=== PATIENT | female | born 1985 | race African-American/Black ===

== ENCOUNTER → 2020-03-28 09:52 | Outpatient (BNVA) | payer OTHER, SELFPAY | PROVIDERS: PCP Internal Medicine; Referring Provider Internal Medicine; Visit Provider Surgery | DX: Z76.89 Persons encountering health services in other specified circumstances (principal) ==

== ENCOUNTER → 2020-04-11 08:36 | Outpatient (BNVA) | payer OTHER, SELFPAY | PROVIDERS: PCP Internal Medicine; Visit Provider Dietitian, Registered | DX: Z76.89 Persons encountering health services in other specified circumstances (principal) ==

== ENCOUNTER → 2020-04-18 12:59 | Outpatient (BNVA) | payer OTHER, SELFPAY | PROVIDERS: PCP Internal Medicine; Visit Provider Physician Assistant | DX: Z76.89 Persons encountering health services in other specified circumstances (principal) ==

== ENCOUNTER → 2020-05-07 08:37 | Outpatient (BNVA) | payer OTHER, SELFPAY | PROVIDERS: Visit Provider Physician Assistant | DX: Z76.89 Persons encountering health services in other specified circumstances (principal) ==

== ENCOUNTER → 2020-05-13 09:18 | Outpatient (BNVA) | payer OTHER, SELFPAY | PROVIDERS: PCP Physician Assistant Medical; Referring Provider Physician Assistant Medical; Visit Provider Dietitian, Registered | DX: Z76.89 Persons encountering health services in other specified circumstances (principal) ==

== ENCOUNTER → 2020-05-19 08:20 | Outpatient (BNVA) | payer OTHER, SELFPAY | PROVIDERS: PCP Physician Assistant Medical; Referring Provider Physician Assistant Medical; Visit Provider Physician Assistant | DX: Z76.89 Persons encountering health services in other specified circumstances (principal) ==

== ENCOUNTER → 2020-05-20 08:18 | Outpatient (BNVA) | payer OTHER, SELFPAY | PROVIDERS: PCP Internal Medicine; Visit Provider Surgery | DX: Z76.89 Persons encountering health services in other specified circumstances (principal) ==

== ENCOUNTER 2020-05-27 09:01 | Outpatient (REF) | payer OTHER, SELFPAY ==
--- NOTE | 2020-05-27 10:29 | XR_ITS ---
EXAMINATION: XR CHEST CLINICAL INFORMATION: Shortness of breath. COMPARISON: Chest 10/12/2018 TECHNIQUE: 2 views of the chest were obtained. FINDINGS: No significant abnormality is noted involving the heart, lungs, mediastinum, bony thorax or soft tissues. XR/XR chest 2V IMPRESSION: Unremarkable chest examination.
--- NOTE | 2020-05-27 10:41 | ECG_ITS ---
Test Reason : CP Blood Pressure : / mmHG Vent. Rate : 058 BPM Atrial Rate : 058 BPM P-R Int : 184 ms QRS Dur : 086 ms QT Int : 408 ms P-R-T Axes : 040 058 005 degrees QTc Int : 400 ms Sinus bradycardia with marked sinus arrhythmia Otherwise normal ECG When compared with ECG of 12-OCT-2018 06:42, QT has shortened Referred By: Delores Briones Electronically Signed By:Thee Joseph
[2020-05-27 11:28] LABS: MANUAL DIFF FLAG NO
[2020-05-27 11:39] LABS: Basophils Percent Auto 0.6 % (0-2); Eosinophils Absolute Auto 0.1 X10*3/uL (0.0-0.4); Hematocrit 40.5 % (37-47); Lymphocytes Absolute Auto 2.5 X10*3/uL (1.2-4.9); Lymphocytes Percent Auto 47.3 % (20-40); Mean Corpuscular HGB Conc 32.1 g/dl (31.0-35.0); Mean Corpuscular Hemoglobin 27.9 pg (27.0-33.0); Mean Corpuscular Volume 86.9 fL (80-98); Mean Platelet Volume 10.1 fL (9.4-12.3); Monocytes Absolute Auto 0.2 X10*3/uL (0.1-1.2); Neutrophils Absolute Auto 2.5 X10*3/uL (2.0-8.3); Neutrophils Percent Auto 47.1 % (45-73); Platelet Count 345 X10*3/uL (160-400); Red Blood Count 4.66 X10*6/uL (4.20-5.50); Red Cell Distribution Width 13.1 % (11.0-16.0); White Blood Count 5.2 X10*3/uL (4.8-10.8)
[2020-05-27 12:22] LABS: Alanine Aminotransferase 34 U/L (0-31); Albumin Level 4.3 g/dL (3.5-5.0); Alkaline Phosphatase 71 U/L (39-117); Anion Gap 12 (12-20); Aspartate Amino Transferase 19 U/L (5-31); Bilirubin Total 0.6 mg/dL (0.0-1.0); Blood Urea Nitrogen 10 mg/dL (9-16); C Reactive Protein 0.32 mg/dL (< or = 0.50); Carbon Dioxide 29 mmol/L (22-29); Chloride 104 mmol/L (96-108); Cholesterol 161 mg/dL; Estimated Glomerular Filt Rate > 60; Glucose Fasting 90 mg/dL (60-99); HDL Cholesterol 31 mg/dL; Iron 81 mcg/dL (30-160); LDL Cholesterol Calculated 114 mg/dl; Percent Iron Saturation 21 % (15-50); Potassium 3.8 mmol/l (3.3-5.1); Sodium 141 mmol/L (135-145); Total Iron Binding Capacity 387 mcg/dL (228-428); Triglycerides 84 mg/dL; Unsaturated Iron Binding 306 ug/dL
[2020-05-27 12:38] LABS: Vitamin B12 567 pg/mL (200-900)
[2020-05-27 12:49] LABS: Vitamin D 25-OH Total 17.8 ng/mL (>30)
[2020-05-29 16:03] LABS: PTHI 97 pg/mL (14-64)
[2020-05-31 15:28] LABS: Zinc 75 mcg/dL (60-130)
[2020-06-01 13:47] LABS: Vitamin B1 <6 nmol/L (8-30)
[2020-06-02 09:42] LABS: Vitamin A 34 mcg/dL (38-98)
== END 2020-05-27 09:02 | disposition home or self-care (01) ==
LOC: HO.LAB 09:01
PROVIDERS: PCP Internal Medicine; Visit Provider Surgery
DX: Z01.818 Encounter for other preprocedural examination (principal); R06.02 Shortness of breath; E66.01 Morbid (severe) obesity due to excess calories; Z68.44 Body mass index [BMI] 60.0-69.9, adult
CPT/HCPCS: 36415; 71046; 80053; 80061; 82306; 82607; 83540; 83970; 84425; 84443; 84590; 84630; 85025; 86140; 93005

== ENCOUNTER → 2020-06-02 08:55 | Outpatient (BNVA) | payer OTHER, SELFPAY | PROVIDERS: PCP Internal Medicine; Visit Provider Surgery | DX: Z76.89 Persons encountering health services in other specified circumstances (principal) ==

== ENCOUNTER → 2020-06-04 08:17 | Outpatient (BNVA) | payer OTHER, SELFPAY | PROVIDERS: PCP Internal Medicine; Visit Provider Internal Medicine | DX: Z76.89 Persons encountering health services in other specified circumstances (principal) ==

== ENCOUNTER → 2020-06-19 14:01 | Outpatient (BNVA) | payer OTHER, SELFPAY | PROVIDERS: PCP Internal Medicine; Visit Provider Surgery | DX: Z76.89 Persons encountering health services in other specified circumstances (principal) ==

== ENCOUNTER → 2020-06-24 07:40 | Outpatient (REF) | payer OTHER, SELFPAY ==
--- NOTE | 2020-06-24 07:43 | CA_ITS ---
Transthoracic Echocardiogram Patient (Last, First, Middle): Bonnie Bass, Gender: Female Date of : 1985 Age: 34 Procedure Date: 06/24/2020 Procedure Type: Transthoracic Echocardiogram Location: OP Height: 170.18 cm Weight: 171.01 kg BSA: 2.65 m2 Heart Rate: bpm BP: 127 / 78 mmHg Hatch Tender: Referring MD: Donavan Oliveira MD Hand Ii Blocker: Felice Lai MD Symptoms: R06.02 - Shortness of breath Study Quality: Fair ECG Rhythm: Sinus Conclusions: - Essentially normal study Findings Left Ventricle Normal left ventricular size, thickness, and systolic function. The visually estimated ejection fraction is between 60-65%. Diastolic function is normal for age. Right Ventricle Normal right ventricular cavity size and systolic function. Atria Both atria are normal in size. There is no evidence of interatrial shunt. Aortic Valve The aortic valve structure and function is likely normal. There is no aortic valve stenosis. There is no aortic valve regurgitation. Mitral Valve Normal mitral valve structure and function. There is trace mitral valve regurgitation. There is no mitral valve stenosis. Pulmonic Valve The pulmonic valve was not well visualized. Tricuspid Valve Likely normal tricuspid valve structure and function. There is trace tricuspid valve regurgitation. The right ventricular systolic pressure is normal. The right ventricular systolic pressure is 26 mmHg. Normal right atrial pressure. There is no evidence of pulmonary hypertension. Great Vessels All visible segments of the aorta are normal in size. Venous The inferior vena cava is normal in size and collapses greater than 50% with inspiration. Pericardium/Pleural There is no evidence of pericardial effusion. Prior Study Comparison No prior study available for comparison. Measurements 2D Linear Measurements IVSd: 0.85 0.6-0.9/0.6-1.0 cm LVIDd: 4.00 3.9-5.3/4.2-5.9 cm LVIDd Index: 1.51 2.4-3.2/2.2-3.1 cm/m2 LVIDs: 2.33 2.0-3.6 cm LVPWd: 0.80 0.7-1.1 cm Ao Root: 2.90 2.1-3.5 cm LA Diam: 3.10 2.7-3.8/3.0-4.0 cm LAIDs Index: 1.17 1.5-2.3 cm/m2 LV Mass: 220.37 67-162/88-224 g LV Mass Index: 83.16 43-95/49-115 g/m2 LVOT Diam: 2.10 3.0+(-)1.3 cm Mitral Valve MV Pk E: 1.03 MV PK A: 0.54 MV Decel Time: 227.00 E/A: 1.90 E'Lateral: 10.80 E'Medial: 13.00 E/E' Med: 7.90 E/E' Lat: 9.50 PHT: 66.00 MVA PHT: 3.33 Decel [place]: 4.53 Aortic Valve AoV Pk Raffy: 1.32 AoV Mn Raffy: 0.90 AoV VTI: 0.32 AoV Pk Grad: 7.00 Aov Mn Grad: 4.00 TANIA Cont.VTI: 2.17 LVOT LVOT Pk Raffy: 0.77 LVOT Mn Raffy: 0.56 LVOT VTI: 0.20 LVOT Pk Grad: 2.00 LVOT Mn Grad: 1.00 LVOT Diam: 2.10 LVOT Area: 3.46 Diastolic Function MV Pk E: 1.03 MV Pk A: 0.54 E/A: 1.90 E'Medial: 13.00 E/E' Med: 7.90 E' Laterial: 10.80 E/E' Lat: 9.50 Tricuspid Valve TR Pk Raffy: 2.41 TR Pk Grad: 23.00 RA Press: 3.00 RVSP: 26.00 Great Vessels Aorta Ao Root-2D: 2.90 2.0-3.7 cm Ao Asc: 2.30 2.1-3.4 cm Pulmonary Valve PV Pk Raffy: 1.02 Peak PV Grad: 4.00 Updated in Other Vendor System with Status of Final Felice Lai MD electronically signed on 06/25/2020 2:59:52 PM with status of Final
== END ==
LOC: HO.CARD 07:40
PROVIDERS: Visit Provider Internal Medicine
DX: R06.02 Shortness of breath (principal)
CPT/HCPCS: 93306

== ENCOUNTER → 2020-06-27 14:01 | Outpatient (BNVA) | payer OTHER, SELFPAY | PROVIDERS: PCP Internal Medicine; Visit Provider Physician Assistant | DX: Z76.89 Persons encountering health services in other specified circumstances (principal) ==

== ENCOUNTER → 2020-06-30 13:17 | Outpatient (BNVA) | payer OTHER, SELFPAY | PROVIDERS: PCP Internal Medicine; Visit Provider Surgery ==

== ENCOUNTER 2020-07-09 05:48 | Inpatient (IN) | payer OTHER, SELFPAY ==
--- NOTE | 2020-07-01 08:16 | ECG_ITS ---
Test Reason : CP Blood Pressure : / mmHG Vent. Rate : 075 BPM Atrial Rate : 075 BPM P-R Int : 176 ms QRS Dur : 084 ms QT Int : 398 ms P-R-T Axes : 044 053 007 degrees QTc Int : 444 ms Normal sinus rhythm Normal ECG When compared with ECG of 27-MAY-2020 10:51, No significant change was found Referred By: Delores Briones Electronically Signed By:FREDDY KRAUSE
[2020-07-01 08:49] LABS: MANUAL DIFF FLAG NO
[2020-07-01 08:53] LABS: Basophils Percent Auto 0.6 % (0-2); Eosinophils Absolute Auto 0.2 X10*3/uL (0.0-0.4); Eosinophils Percent Auto 2.5 % (0-4); Hematocrit 37.7 % (37-47); Hemoglobin 12.2 g/dl (12.0-16.0); Imm Gran Abs Auto 0.01 X10*3/uL (0.00-0.03); Imm Gran Pct Auto 0.1 % (0.0-0.4); Lymphocytes Absolute Auto 3.1 X10*3/uL (1.2-4.9); Lymphocytes Percent Auto 42.6 % (20-40); Mean Corpuscular HGB Conc 32.4 g/dl (31.0-35.0); Mean Corpuscular Hemoglobin 27.5 pg (27.0-33.0); Mean Corpuscular Volume 85.1 fL (80-98); Mean Platelet Volume 9.6 fL (9.4-12.3); Monocytes Absolute Auto 0.4 X10*3/uL (0.1-1.2); Monocytes Percent Auto 6.1 % (2-11); Neutrophils Absolute Auto 3.5 X10*3/uL (2.0-8.3); Neutrophils Percent Auto 48.1 % (45-73); Platelet Count 352 X10*3/uL (160-400); Red Blood Count 4.43 X10*6/uL (4.20-5.50); Red Cell Distribution Width 13.2 % (11.0-16.0); White Blood Count 7.3 X10*3/uL (4.8-10.8)
[2020-07-01 09:19] LABS: Albumin Level 4.2 g/dL (3.5-5.0); Anion Gap 13 (12-20); Blood Urea Nitrogen 10 mg/dL (9-16); Calcium 8.8 mg/dL (8.4-10.2); Carbon Dioxide 27 mmol/L (22-29); Chloride 105 mmol/L (96-108); Estimated Glomerular Filt Rate > 60; Glucose Random 107 mg/dL (60-115); Potassium 3.7 mmol/l (3.3-5.1); Sodium 141 mmol/L (135-145)
[2020-07-01 09:40] LABS: Vitamin D 25-OH Total 21.7 ng/mL (>30)
[2020-07-02 10:31] VITALS: BMI 59.2
--- NOTE | 2020-07-03 15:16 | P.CONAN_ITS ---
Documented by User: Amena Torrez 07/08/20 10:37 HPI - Anesthesia Eval Consult details Narrative: 34yo F for Gastrectomy Sleeve Cardiac cleared at low risk. [facility]LY [facility] Past Medical History Medical History (Updated 07/02/20 @ 10:34 by Latanya Dumont) ADD (attention deficit disorder) Anxiety Asthma Depression GERD (gastroesophageal reflux disease) Intrauterine contraceptive device Morbid obesity with BMI of 60.0-69.9, adult Sleep apnea Family History Family History Father HTN (hypertension) Mother HTN (hypertension) Brother No problems noted. Sister No problems noted. Surgical History Surgical History H/O lymph node excision H/O wisdom tooth extraction Social History Social History (Updated 07/02/20 @ 10:37 by Latanya Dumont) Are you a primary animal caretaker to a significant other at home: No Do you presently have visiting nurse or other home services: No Alcohol intake: current Alcohol intake frequency: a few times a month Smoking Status: Never smoker Use of substances other than those prescribed or required for medical reasons: No Have you been hit, kicked, punched, or otherwise hurt by someone within the past year? If so, by whom?: No Advance Directives Information Provided: No Recently lost weight without trying: No Meds Allergies Allergy/AdvReac Type Severity Reaction Status Date / Time No Known Allergies Allergy Verified 06/30/20 14:37 Home Medications Medication Instructions Recorded Confirmed Type albuterol sulfate [ProAir HFA] 2 puff INHALATION Q4-6H PRN 07/03/20 07/03/20 History Exam Exam Date and Time: July 03, 2020 1516 Height,Weight and Vital Signs: Height 5 ft 7 in Weight 171.458 kg Pertinent Lab Results Pertinent Lab Results: Laboratory Tests 07/01/20 07/01/20 07/01/20 08:05 08:05 08:05 WBC 7.3 RBC 4.43 Hgb 12.2 Hct 37.7 MCV 85.1 MCH 27.5 MCHC 32.4 RDW 13.2 Plt Count 352 MPV 9.6 Immature Gran % (Auto) 0.1 Neut % (Auto) 48.1 Lymph % (Auto) 42.6 H [place] % (Auto) 6.1 Eos % (Auto) 2.5 Baso % (Auto) 0.6 Lymph # (Auto) 3.1 [place] # (Auto) 0.4 Eos # (Auto) 0.2 Baso # (Auto) 0.0 Abs Immat Gran (auto) 0.01 Absolute Neuts (auto) 3.5 Absolute Nucleated RBC 0.000 Nucleated RBC % (auto) 0.0 Sodium 141 Potassium 3.7 Chloride 105 Carbon Dioxide 27 Anion Gap 13 BUN 10 Creatinine 0.69 Estim Creat Clear Calc TNP Estimated GFR > 60 Random Glucose 107 Calcium 8.8 Albumin 4.2 25-OH Vitamin D Total 21.7 Blood Type B Positive Antibody Screen NEGATIVE Narrative Narrative: EKG 06/2020 Normal sinus rhythm Normal ECG When compared with ECG of 27-MAY-2020 10:51, No significant change was found Echo 06/2020 Conclusions: - Essentially normal study Assessment and Plan Assessment Anesthesia Assessment: Chart Reviewed Documented by User: Karen Zelaya 07/09/20 11:14 [facility] Past Medical History Medical History (Updated 07/02/20 @ 10:34 by Latanya Dumont) ADD (attention deficit disorder) Anxiety Asthma Depression GERD (gastroesophageal reflux disease) Intrauterine contraceptive device Morbid obesity with BMI of 60.0-69.9, adult Sleep apnea Family History Family History Father HTN (hypertension) Mother HTN (hypertension) Brother No problems noted. Sister No problems noted. Family history of problems with anesthesia: No Surgical History Surgical History H/O lymph node excision H/O wisdom tooth extraction History of Problems with Anesthesia: No Social History Social History (Updated 07/02/20 @ 10:37 by Latanya Dumont) Are you a primary animal caretaker to a significant other at home: No Do you presently have visiting nurse or other home services: No Alcohol intake: current Alcohol intake frequency: a few times a month Smoking Status: Never smoker Use of substances other than those prescribed or required for medical reasons: No Have you been hit, kicked, punched, or otherwise hurt by someone within the past year? If so, by whom?: No Advance Directives Information Provided: No Recently lost weight without trying: No Meds Allergies Allergy/AdvReac Type Severity Reaction Status Date / Time No Known Allergies Allergy Verified 06/30/20 14:37 Home Medications Medication Instructions Recorded Confirmed Type albuterol sulfate [ProAir HFA] 2 puff INHALATION Q4-6H PRN 07/03/20 07/03/20 History Exam Height,Weight and Vital Signs: Vital Signs Temp Pulse Resp BP Pulse Ox 07/09/20 07:27 97 F 76 18 138/67 98 Pertinent Lab Results Pertinent Lab Results: Lab Results 07/01/20 07/01/20 07/01/20 Range/Units 08:05 08:05 08:05 WBC 7.3 (4.8-10.8) X10*3/uL RBC 4.43 (4.20-5.50) X10*6/uL Hgb 12.2 (12.0-16.0) g/dl Hct 37.7 (37-47) % MCV 85.1 (80-98) fL MCH 27.5 (27.0-33.0) pg MCHC 32.4 (31.0-35.0) g/dl RDW 13.2 (11.0-16.0) % Plt Count 352 (160-400) X10*3/uL MPV 9.6 (9.4-12.3) fL Immature Gran % (Auto) 0.1 (0.0-0.4) % Neut % (Auto) 48.1 (45-73) % Lymph % (Auto) 42.6 H (20-40) % [place] % (Auto) 6.1 (2-11) % Eos % (Auto) 2.5 (0-4) % Baso % (Auto) 0.6 (0-2) % Lymph # (Auto) 3.1 (1.2-4.9) X10*3/uL [place] # (Auto) 0.4 (0.1-1.2) X10*3/uL Eos # (Auto) 0.2 (0.0-0.4) X10*3/uL Baso # (Auto) 0.0 (0.0-0.2) X10*3/uL Abs Immat Gran (auto) 0.01 (0.00-0.03) X10*3/uL Absolute Neuts (auto) 3.5 (2.0-8.3) X10*3/uL Absolute Nucleated RBC 0.000 (0.0-0.012) X10*3/uL Nucleated RBC % (auto) 0.0 (0.0-0.2) /100WBC Sodium 141 (135-145) mmol/L Potassium 3.7 (3.3-5.1) mmol/l Chloride 105 (96-108) mmol/L Carbon Dioxide 27 (22-29) mmol/L Anion Gap 13 (12-20) BUN 10 (9-16) mg/dL Creatinine 0.69 (0.5-1.4) mg/dL Estim Creat Clear Calc TNP Estimated GFR > 60 Random Glucose 107 (60-115) mg/dL Calcium 8.8 (8.4-10.2) mg/dL Albumin 4.2 (3.5-5.0) g/dL Vitamin A 54 (38-98) mcg/dL Vitamin B1 11 (8-30) nmol/L 25-OH Vitamin D Total 21.7 (>30) ng/mL Urine Test (NEGATIVE) COVID-19 (ROSALIND) (Negative) COVID-19 Clin [facility] Blood Type Antibody Screen 07/01/20 07/09/20 07/09/20 Range/Units 08:05 07:10 07:10 WBC (4.8-10.8) X10*3/uL RBC (4.20-5.50) X10*6/uL Hgb (12.0-16.0) g/dl Hct (37-47) % MCV (80-98) fL MCH (27.0-33.0) pg MCHC (31.0-35.0) g/dl RDW (11.0-16.0) % Plt Count (160-400) X10*3/uL MPV (9.4-12.3) fL Immature Gran % (Auto) (0.0-0.4) % Neut % (Auto) (45-73) % Lymph % (Auto) (20-40) % [place] % (Auto) (2-11) % Eos % (Auto) (0-4) % Baso % (Auto) (0-2) % Lymph # (Auto) (1.2-4.9) X10*3/uL [place] # (Auto) (0.1-1.2) X10*3/uL Eos # (Auto) (0.0-0.4) X10*3/uL Baso # (Auto) (0.0-0.2) X10*3/uL Abs Immat Gran (auto) (0.00-0.03) X10*3/uL Absolute Neuts (auto) (2.0-8.3) X10*3/uL Absolute Nucleated RBC (0.0-0.012) X10*3/uL Nucleated RBC % (auto) (0.0-0.2) /100WBC Sodium (135-145) mmol/L Potassium (3.3-5.1) mmol/l Chloride (96-108) mmol/L Carbon Dioxide (22-29) mmol/L Anion Gap (12-20) BUN (9-16) mg/dL Creatinine (0.5-1.4) mg/dL Estim Creat Clear Calc Estimated GFR Random Glucose (60-115) mg/dL Calcium (8.4-10.2) mg/dL Albumin (3.5-5.0) g/dL Vitamin A (38-98) mcg/dL Vitamin B1 (8-30) nmol/L 25-OH Vitamin D Total (>30) ng/mL Urine Test NEGATIVE (NEGATIVE) COVID-19 (ROSALIND) Negative (Negative) COVID-19 Clin Com See Note Blood Type B Positive Antibody Screen NEGATIVE Airway Mallampati Class: III TM Dist: >3cm Neck ROM: Full Loose/Missing/Broken Teeth: Yes (Some missing) Heart: RRR Lungs: CTAB Assessment and Plan Assessment Anesthesia Assessment: Anesthesia Plan Discussed and Chart Reviewed Final Anesthetic Review NPO: Yes ASA Class: III Final Preanesthetic Review: No Changes in Pt Med Stat, Meds/Allgs Chart Reviewed, Consent Obtained/Reviewed and Anes Risks/Benef Reviewed Patient Risk: Intermediate Procedure Risk: Intermediate Assessment/Block/Sedation in SS: Assess/Block/Sedation-SS Anesthetic Plan Anesthetic Plan: GA Disposition: Extended PACU
[2020-07-05 04:03] LABS: Vitamin A 54 mcg/dL (38-98)
[2020-07-05 12:13] LABS: Vitamin B1 11 nmol/L (8-30)
--- NOTE | 2020-07-08 15:18 | MHC.SHP ---
Pre-Procedural Eval Section B Chief Complaint: obesity Allergies: Allergies Allergy/AdvReac Type Severity Reaction Status Date / Time No Known Allergies Allergy Verified 06/30/20 14:37 Plan I have reviewed the history and physical and performed a pertinent physical examination on my patient. No changes have occurred unless specified.
[2020-07-09] VITALS (19 sets, daily range): BP systolic 138–198; BP diastolic 67–104; PULSE 76–100; RESP 14–19; TEMP 36.1–37.3; O2SAT 94–100
[2020-07-09 07:24] LABS: UPreg QC Valid YES; Urine Pregnancy NEGATIVE (NEGATIVE)
[2020-07-09 07:33] LABS: IDNOW Serial# 9DD0AD1C
[2020-07-09 07:34] LABS: COVID-19 Test Negative (Negative)
[2020-07-09] MEDS: Lactated Ringers 1,000 ML 100 ML IVCONT ×2 (07:35→23:42)
--- NOTE | 2020-07-09 09:11 | PM.OP ---
Brief Operative Note Date of Service: 07/09/20 Pre-op diagnosis: Morbid obesity, BMI 59.2, sleep apnea Post-op diagnosis: other (Same and hiatal hernia) Procedure: Laparoscopic sleeve gastrectomy, hiatal hernia repair, Deanna block, and intraoperative endoscopy Implants: covidien el and clips at the staple line on sleeve Surgeon: Delores Briones MD Anesthesia: GETA Personal Development Coach: Rika Machado Estimated blood loss (mL): 30 Pathology: other (Partial gastrectomy) Condition: stable Disposition: PACU
--- NOTE | 2020-07-09 09:12 | P.OP_ITS ---
Operative Note Operative Note Date of Service: 07/09/20 Narrative: Patient was brought into the operating room and placed on the operating room table in the supine position. General anesthesia was induced. Normal DVT prophylaxis was instituted and the patient received 2 grams of cefotetan preoperatively. The abdomen was then prepped and draped in the normal sterile fashion. A safety time-out was performed. A mixture of 1% lidocaine with epinephrine and ??% Marcaine plain was used to a nesthetize the planned incision site in the left upper quadrant. A #11 scalpel was used to make a 5 mm left upper quadrant transverse incision through which a veress needle was placed. Three pops were heard going through the fascia. A saline drop test was used to confirm that the veress needle was intraabdominal. An optiview technique was then used to place a 5mm port in the left upper quadrant. A 5 mm 30 degree laproscope was then placed through this port and the abdominal cavity was surveyed and was normal. The patient was placed in reverse Trendelenburg positioning. A saroj liver retractor was then placed in the subxyphoid position and it was used to hold up the left lobe of the liver to the abdominal wall. This was secured to the bed using the liver retractor walters. A GEREMIAS block was then performed for pain control on the right side of the abdomen. A 5 mm port was placed in the right upper quadrant near the falciform ligament. A 12 mm port was then placed in the mid epigastrium. One additional 5 mm port was placed in the left upper quadrant just to the left of the placement of the first port. I then performed a GEREMIAS block on the left side of the abdomen. I then removed the epigastric fat pad; there was a small anterior hiatal hernia noted. I reapproximated the left and right crura with a total of 2 stitches of 2-0 ethibond and a laparoscopic knot pusher. There was no residual hiatal hernia. I then opened up the angle of His. We then gained entry into the lesser sac about 4-5 cm from the pylorus. I had anesthesia place a 34 [place] orogastric tube into the distal antrum to use as a sizing tool for gastric pouch size. I divided the short gastric vessels up to the angle of His. We then started the creation of the gastric pouch by firing a 60 mm purple load endostapler up the stomach about 4-5 cm from the pylorus. We completed the creation of the gastric pouch using a total of 4 firings of a 60 mm purple and 1 firing of a 45 mm load stapler. We had anesthesia remove the orogastric tube, then we clamped across the distal antrum using a fired 60 mm endostapler. We flattened the patient and then instilled normal saline surrounding the newly created staple line. I then performed an on-table endoscopy. I passed the gastroscopy into the posterior oropharynx and down the esophagus evaluating the esophageal mucosa which was normal. There was no evidence of hiatal hernia. I passed the gastroscope into the gastric pouch and insufflated the gastric pouch. There was healthy pink mucosa and no evidence of active bleeding. There was no evidence of leak on laparosc opy. I desufflated the gastric pouch and removed the endoscope. I removed the endostapler from the abdomen and suctioned the fluid from the left upper quadrant. We evaluated staple line once again and there was some oozing from the staple line. We placed a large clips all along the staple line from the pre-pyloric region to the GE junction. There was no residual bleeding from the staple line. I then removed the partial gastrectomy specimen through the epigastric 12 mm port site. I reapproximated the 12 mm port using a 0 maxon suture with a laparoscopic suture passer. I instilled local anesthetic into the fascial closure site and tied the suture down at a pressure of 8-10 mm of Hg. There was no residual fascial defect. We removed the liver retractor and the left upper quadrant 5 mm ports under direct visualization. There was no evidence of any active bleeding. I desufflated the abdomen through the last remaining port and removed the laparoscope and 5 mm port. We reapproximated all incisions with a 4-0 monocryl subcuticular stitch. We cleaned and dried the abdominal skin and applied dermabond skin glue. All count were correct at the end of the case. The patient was awake and in stable condition prior to extubation and transfer to the recovery room.
[2020-07-09] MEDS: ondansetron HCL 4 MG/2 ML VIAL IVPUSH (12:00)
--- NOTE | 2020-07-09 12:07 | PM.DS ---
DS: Providers Provider Date of Service: 07/10/20 Date of admission: 07/09/20 05:48 Primary care physician: Shima Stapleton MD DS: Medications Discharge Medications Home Medications: Home Medications Medication Instructions Recorded Confirmed albuterol sulfate [ProAir HFA] 2 puff INHALATION Q4-6H PRN 07/03/20 07/03/20 Previous Rx's Medication Instructions Recorded thiamine HCl (vitamin B1) 100 mg 100 mg PO DAILY #30 tab 06/02/20 tablet vitamin A palmitate 10,000 unit 20,000 unit PO DAILY 30 Days #60 06/02/20 tablet tab acetaminophen 500 mg tablet 1,000 mg PO Q6H PRN #30 tab 06/30/20 docusate sodium 100 mg capsule 100 mg PO BID #30 cap 06/30/20 famotidine 20 mg tablet 20 mg PO DAILY #30 tab 06/30/20 ondansetron HCl 4 mg tablet 4 mg PO Q6H PRN #30 tab 06/30/20 simethicone 80 mg chewable tablet 80 mg PO TID-QID PRN #30 tab 06/30/20 DS: Summary Time Spent with Patient Time attestation: Total time spent providing and/or coordinating discharge services: Discharge coordination time: Greater than 30 minutes Physical Exam Vital Signs: Vital Signs: Last Vital Signs Temp 97 F 07/09/20 07:27 Pulse 76 07/09/20 07:27 Resp 18 07/09/20 07:27 BP 138/67 07/09/20 07:27 Pulse Ox 98 07/09/20 07:27 Body Mass Index 59.2 DS: Data Data Completed and Pending Pending studies at discharge: Pending at discharge 07/09/20 10:13 Surgical [PTH] Routine Labs on day of discharge: Laboratory Tests 07/01/20 07/01/20 07/01/20 08:05 08:05 08:05 WBC 7.3 RBC 4.43 Hgb 12.2 Hct 37.7 MCV 85.1 MCH 27.5 MCHC 32.4 RDW 13.2 Plt Count 352 MPV 9.6 Immature Gran % (Auto) 0.1 Neut % (Auto) 48.1 Lymph % (Auto) 42.6 H [place] % (Auto) 6.1 Eos % (Auto) 2.5 Baso % (Auto) 0.6 Lymph # (Auto) 3.1 [place] # (Auto) 0.4 Eos # (Auto) 0.2 Baso # (Auto) 0.0 Abs Immat Gran (auto) 0.01 Absolute Neuts (auto) 3.5 Absolute Nucleated RBC 0.000 Nucleated RBC % (auto) 0.0 Sodium 141 Potassium 3.7 Chloride 105 Carbon Dioxide 27 Anion Gap 13 BUN 10 Creatinine 0.69 Estim Creat Clear Calc TNP Estimated GFR > 60 Random Glucose 107 Calcium 8.8 Albumin 4.2 Vitamin A 54 Vitamin B1 11 25-OH Vitamin D Total 21.7 Urine Test COVID-19 (ROSALIND) COVID-19 [facility] [place] [facility] Blood Type Antibody Screen 07/01/20 07/09/20 07/09/20 08:05 07:10 07:10 WBC RBC Hgb Hct MCV MCH MCHC RDW Plt Count MPV Immature Gran % (Auto) Neut % (Auto) Lymph % (Auto) [place] % (Auto) Eos % (Auto) Baso % (Auto) Lymph # (Auto) [place] # (Auto) Eos # (Auto) Baso # (Auto) Abs Immat Gran (auto) Absolute Neuts (auto) Absolute Nucleated RBC Nucleated RBC % (auto) Sodium Potassium Chloride Carbon Dioxide Anion Gap BUN Creatinine Estim Creat Clear Calc Estimated GFR Random Glucose Calcium Albumin Vitamin A Vitamin B1 25-OH Vitamin D Total Urine Test NEGATIVE COVID-19 (ROSALIND) Negative COVID-19 [facility] [place] See Note Blood Type B Positive Antibody Screen NEGATIVE Discharge Plan Discharge Patient Disposition: Home, Self-Care Referrals: Shima Stapleton MD [Primary Care Provider] - Discharge Medications: Continued thiamine HCl (vitamin B1) 100 mg tablet 100 mg PO DAILY Qty: 30 RF: 0 vitamin A palmitate 10,000 unit tablet 20,000 unit PO DAILY 30 Days Qty: 60 RF: 0 albuterol sulfate [ProAir HFA] 90 mcg/actuation Hfa Aerosol Inhaler 2 puff INHALATION Q4-6H PRN (Reason: Shortness Of Breath) RF: 0 acetaminophen [Tylenol Extra Strength] 500 mg tablet 1,000 mg PO Q6H PRN (Reason: pain) Qty: 30 RF: 1 famotidine [Pepcid AC] 20 mg tablet 20 mg PO DAILY Qty: 30 RF: 1 simethicone [Gas Relief (simethicone)] 80 mg tablet,chewable 80 mg PO TID-QID PRN (Reason: abdominal distention) Qty: 30 RF: 1 ondansetron HCl [Zofran] 4 mg tablet 4 mg PO Q6H PRN (Reason: nausea and vomiting) Qty: 30 RF: 1 docusate sodium [Colace] 100 mg capsule 100 mg PO BID Qty: 30 RF: 1 Discharge Orders: Discharge Order (Routine); Ordered 07/10/20 Ordered By: Delores Briones Diet: other Activity on Discharge: No heavy lifting Stand Alone Forms: Patient Portal Discharge page Activity Restrictions/Additional Instructions: Discharge Instructions 1. Please call your doctor or come back to the emergency room should any new symptoms arise. 2. You will receive a courtesy call from [facility] 24-48 hours after discharge. 3. Activity: abstain from alcohol, practice limited stair climbing, no bending, no driving, no exercise, no illicit substances, no lifting, no sex, no tub bath, no work. 4. Diet: continue stage 3 protein shakes until your [address] Briones. 5. Dressing Change/Wound Care: Your incision is covered by surgical glue. If the area is tender, you may apply an ice pack for short intervals (no more than 20 minutes on, followed by at least 20 minutes off). Do not apply heat. Do not use creams, lotions, or topical antibiotics unless instructed to do so by your surgeon. These can cause infection or allergic reaction. 6. Call your doctor if: - Your temperature exceeds 101.5 F - You experience excessive pain or swelling - You have an unexpected reaction to medication - You have excessive bleeding - You experience continued vomiting/nausea - Your incision begins to separate - Your incision shows signs of infection such as increased redness, swelling, excessive pain, heat, or drainage (light blood or clear fluid is normal) 7. General instructions: - No lifting greater than 5 lbs for the next 4 weeks. - No driving within 24 hours of taking narcotic pain medications. - If you do not move your bowels in the next 2 days, please take milk of magnesia over the counter. Please follow the post op diet and do not advance your diet until you are seen in the office in about 2 weeks. - Please walk around your home every hour or two to prevent blood clots from forming in your legs. You do not need to wake from sleeping to walk. - Please sleep in a bed or couch to prevent kinking at the hips and knees. - Please take your incentive spirometer (your lung health sciences department chair) home with you and use it for the next few days to prevent pneumonias. - You may shower, no hot tubs, baths or swimming pools. - Please call the office with any questions or concerns such as increasing abdominal pain, fever, chills, shortness of breath, chest pain, leg pain or swelling, or redness or drainage from your incisions. - Please stay on stage 3 diet which includes sugar free clear liquids such as ice pops and jello and broth and crystal light. Avoid all carbonation. Please drink 3 protein shakes with at least 25-30 grams of protein daily or 3 of the Celebrate 4:1 shakes which can be purchased in our office. The Celebrate shakes have all of the bariatric vitamins you need if you consume these shakes. If you are drinking other protein shakes, you will need to purchase the Celebrate multivitamins and calcium that we provide in the office (they will provide all the vitamins you need). Please make sure you are consuming at least 40-60 ounces of water in addition to your 3 protein shakes daily. 8. Do not hesitate to contact the office with any questions at . Discharge Summary Date of Service: 07/10/20 Admitting Diagnosis: morbid obesity Discharge Diagnosis: same, and hiatal hernia Procedure Performed: LSG, hiatal hernia repair, aster block, intraoperative endoscopy Discharge Medications: 1. Simethicone 80mg tablet chewable (Si tablet every 6 hours orally for 7 days, #28, 1 RF) q4h prn gas 2. Acetaminophen 500 mg tablet (Si tablets as needed every 6 hours orally for 30 days, #240, 0 RF) 3. Ondansetron 4 mg tablet disintegrating (Si tablet every 6 hours orally for 7 days, #28, 1 RF) 4. Colace 100 mg capsule (Si capsule twice a day for 30 days, #60, 2 RF) 5. Pepcid 20 mg chewable tablet (Si tablet twice a day for 30 days, #60, 3 RF) Discharge Instructions: The patient should continue on the stage III bariatric diet, which includes 3 protein shakes of at least 20-30g of protein on a daily basis. The patient was encouraged to avoid drinking liquids with her protein shakes. They should wait 30-45 minutes in between her meals and drinking water. She should drink at least 40-60 ounces of water on a daily basis. They should ambulate while at home to avoid any blood clots in her lower extremities. They should call with any questions or concerns such as increase in abdominal pain, persistent nausea, vomiting, redness and drainage from her incisions, fever, chills, shortness of breast, or chest pain beyond what is normal for her. The patient should avoid all heavy lifting greater than 5 pounds for the next 4 weeks. The patient is already scheduled to follow up with me in 2 weeks time, but should call the office with any questions prior to that follow up appointment. The patient should not advance their diet until they are seen in the office for the 2 week appointment. Hospital Course: The patient was admitted after undergoing laparoscopic sleeve gastrectomy and repair of hiatal hernia. They were started on stage II (1 oz of fluid every 15 minutes) on POD #0. The next morning they were evaluated and started on stage III diet (protein shakes). All labs were within normal limits. On post-operative day #1 she was feeling better, nausea and epigastric pain improved and they were tolerating stage III bariatric diet well. The patient was discharged home. Discharge Disposition: Home. Visit Report Forms: Patient Portal Discharge page Care Plan Goals: weight loss Health Concerns: obesity Plan of Treatment: weight loss surgery Discharge Date/Time: 07/10/20 13:26
--- NOTE | 2020-07-09 12:07 | P.PNGS_ITS ---
Subjective Subjective Date of Service: 07/10/20 <Rika Machado PA-C - Last Filed: 07/10/20 15:07> 07/10/20 <Delores Briones MD - Last Filed: 07/10/20 15:08> Interval history: POD #1: Patient is doing well. Has been ambulating, using the incentive spirometer, and tolerating po liquids. No nausea or abdominal pain. Has some mild incisional pain. <Rika Machado PA-C - Last Filed: 07/10/20 15:07> Patient seen and examined with JUDY Machado. Patient Pod #1 s/p lap sleeve gastrectomy and hiatal hernia repair. Doing well. Tolerating stage 3 diet, ambulating in hallway. Pain well controlled. Denies nausea or vomiting. She does complain of some gas discomfort that radiates to the left shoulder. She had some issues with hypertension overnight which now much improved. Vitals and labs reviewed and are within limit for post op day 1. On exam, patient is well appearing, abdomen is soft, nd, mild appropriate incisional tenderness. Incisions c/d/I with dermabond in place. Plan: d/c home today. Follow up with me in [address] Briones <Delores Briones MD - Last Filed: 07/10/20 15:08> Physical Exam Vital Signs: Vital Signs: Last Vital Signs Temp 97 F 07/09/20 07:27 Pulse 76 07/09/20 07:27 Resp 18 07/09/20 07:27 BP 138/67 07/09/20 07:27 Pulse Ox 98 07/09/20 07:27 Body Mass Index 59.2 <Rika Machado PA-C - Last Filed: 07/10/20 15:07> Const: General: cooperative, comfortable, no acute distress, alert and awake <Rika Machado PA-C - Last Filed: 07/10/20 15:07> Nutritional Appearance: obese <Rika Machado PA-C - Last Filed: 07/10/20 15:07> GI: Inspection: Yes normal to inspection, Yes incision (normal, slight erythema at site of surgical glue, no tenderness/warmth/drai) and Yes obesity <Rika Machado PA-C - Last Filed: 07/10/20 15:07> Extrem: Right lower extremity: lower leg Details: no tenderness; no edema <PEDRO PABLO Patel Last Filed: 07/10/20 15:07> Left lower extremity: lower leg Details: no tenderness; no edema <PEDRO PABLO Patel Last Filed: 07/10/20 15:07> Progress Note: A&P Assessment and plan (1) Morbid obesity: Status: Acute <PEDRO PABLO Patel Last Filed: 07/10/20 15:07> (2) Hiatal hernia: Status: Acute <PEDRO PABLO Patel Last Filed: 07/10/20 15:07> (3) History of repair of hiatal hernia: Status: Acute <PEDRO PABLO Patel Last Filed: 07/10/20 15:07> (4) S/P laparoscopic sleeve gastrectomy: Status: Acute <PEDRO PABLO Patel Last Filed: 07/10/20 15:07> Assessment and Plan: POD #1: Patient doing well and will be discharged home today. All instructions given in writing. Follow up as scheduled in 2 weeks. <PEDRO PABLO Patel Last Filed: 07/10/20 15:07> Fall Risk Details Current Medications: Current Medications Generic Name Dose Route Start Last Admin Trade Name Freq PRN Reason Stop Dose Admin Albuterol Sulfate 2.5 mg 07/09/20 05:44 Albuterol Sulfate (0.083%) 2.5 Mg/3 Ml Vial.Neb INHALE ONCE PRN Shortness of Breath/Wheezing Fentanyl 25 mcg 07/09/20 11:14 Fentanyl Citrate/Pf 100 Mcg/2 Ml Vial IVPUSH Q5M PRN Pain, Moderate (Pain Scale 4-6 Hydromorphone HCl 0.25 mg 07/09/20 11:14 Hydromorphone Hcl 0.5 Mg/0.5 Ml Syringe IVPUSH Q5M PRN Pain, Severe (Pain Scale 7-10) Lactated Ringer's 1,000 mls @ 100 mls/hr 07/09/20 05:45 07/09/20 07:35 Lr IVCONT 100 mls/hr .Q10H IRISH Administration Promethazine HCl 6.25 mg/ 50.25 mls @ 201 mls/hr 07/09/20 11:14 Sodium Chloride IV ONCE PRN Nausea and Vomiting Ondansetron HCl 4 mg 07/09/20 11:14 07/09/20 12:00 Ondansetron Hcl 4 Mg/2 Ml Vial IVPUSH 4 mg ONCE PRN Administration Nausea and Vomiting <Rika Machado PA-C - Last Filed: 07/10/20 15:07> Time Spent With Patient Time: Total time spent is greater than 50% in coordination of care (as d ocumented) at patient's floor/unit and/or counseling patient: <Rika Machado PA-C - Last Filed: 07/10/20 15:07> Time with patient: 15 - 24 minutes <iRka Machado PA-C - Last Filed: 07/10/20 15:07>
[2020-07-09] MEDS: HYDROmorphone HCl 0.5 MG/0.5 ML SYRINGE 0.25 MG IVPUSH ×2 (13:25→13:30)
[2020-07-09] MEDS: Lactated Ringers 1,000 ML 150 ML IVCONT (15:46)
[2020-07-09] MEDS: 0.9 % Sodium Chloride Flush 3 ML SYRINGE IVFLUSH (15:48)
[2020-07-09] MEDS: hydrALAZINE HCl 20 MG/ML VIAL 10 MG IVPUSH (15:52)
[2020-07-09] MEDS: Famotidine/PF 20 MG/2 ML VIAL IVPUSH ×2 (15:53→21:28)
[2020-07-09] MEDS: Metoclopramide HCl 10 MG/2 ML VIAL IVPUSH (19:10)
[2020-07-09] MEDS: cefoTEtan disodium 2 GM in 0.9 % Sodium Chloride 50 ML IV (21:28)
[2020-07-10] MEDS: 0.9 % Sodium Chloride Flush 3 ML SYRINGE IVFLUSH (00:10)
[2020-07-10] MEDS: ondansetron HCL 4 MG/2 ML VIAL IVPUSH ×2 (00:10→10:17)
[2020-07-10 03:27] VITALS: BP 156/86; PULSE 92; RESP 18; TEMP 36.4; O2SAT 97
[2020-07-10 04:26] LABS: MANUAL DIFF FLAG NO
[2020-07-10 04:27] LABS: Basophils Percent Auto 0.1 % (0-2); Hematocrit 36.8 % (37-47); Hemoglobin 11.9 g/dl (12.0-16.0); Imm Gran Abs Auto 0.03 X10*3/uL (0.00-0.03); Imm Gran Pct Auto 0.3 % (0.0-0.4); Lymphocytes Absolute Auto 1.7 X10*3/uL (1.2-4.9); Mean Corpuscular HGB Conc 32.3 g/dl (31.0-35.0); Mean Corpuscular Hemoglobin 27.2 pg (27.0-33.0); Mean Platelet Volume 9.1 fL (9.4-12.3); Monocytes Absolute Auto 0.6 X10*3/uL (0.1-1.2); Monocytes Percent Auto 5.7 % (2-11); Neutrophils Absolute Auto 8.1 X10*3/uL (2.0-8.3); Neutrophils Percent Auto 77.9 % (45-73); Platelet Count 336 X10*3/uL (160-400); Red Blood Count 4.38 X10*6/uL (4.20-5.50); White Blood Count 10.4 X10*3/uL (4.8-10.8)
[2020-07-10 04:50] LABS: Anion Gap 14 (12-20); Blood Urea Nitrogen 7 mg/dL (9-16); Calcium 8.4 mg/dL (8.4-10.2); Carbon Dioxide 23 mmol/L (22-29); Chloride 104 mmol/L (96-108); Creatinine Clr Calc Pharmacy 200.8; Estimated Glomerular Filt Rate > 60; Glucose Random 110 mg/dL (60-115); Potassium 4.5 mmol/l (3.3-5.1); Sodium 136 mmol/L (135-145)
[2020-07-10 07:58] VITALS: BP 130/65; PULSE 91; RESP 19; TEMP 36.4; O2SAT 97
--- NOTE | 2020-07-10 09:50 | HO.POSTANES ---
Post Anesthesia Evaluation Post Anesthesia Evaluation Vital Signs: Vital Signs Temp Pulse Resp BP Pulse Ox 07/10/20 07:58 97.5 F 91 19 130/65 97 07/10/20 03:27 97.6 F 92 18 156/86 H 97 07/09/20 23:56 97.2 F 79 18 158/90 H 94 Anesthesia: General Endotracheal-GETA Mental Status: Awake Pain Control: Satisfactory Nausea/Vomiting: None Hydration: Adequate Anesthesia-Related Issues: No Anes. Related Issues
[2020-07-10] MEDS: Famotidine/PF 20 MG/2 ML VIAL IVPUSH (10:16)
--- NOTE | 2020-07-10 10:24 | MHC.CM.PN ---
PATIENT IS FULLY INDEPENDENT WITH ADLS. NO DME OR [facility] SERVICES. SHE IS DISCHARGED HOME - SELF CARE.
[2020-07-10 12:00] VITALS: BP 152/70; PULSE 68
== END 2020-07-10 13:26 | disposition home or self-care (01) | DRG 621 ==
LOC: HO.SSSA 12:11 → HO.S3 12:24
PROVIDERS: Nurse Practitioner; Physician Assistant; Admitting Provider Surgery; PCP Internal Medicine; Visit Provider Surgery
PROC: 0DB64Z3 Excision of Stomach, Percutaneous Endoscopic Approach, Vertical (ICD-10-PCS; CPT 43845; principal; 2020-07-09 09:10)
DX: E66.01 Morbid (severe) obesity due to excess calories (principal); K44.9 Diaphragmatic hernia without obstruction or gangrene; Z20.822 Contact with and (suspected) exposure to COVID-19; Z68.43 Body mass index [BMI] 50.0-59.9, adult; Z79.899 Other long term (current) drug therapy
CPT/HCPCS: 36415; 80048; 81025; 82040; 82306; 84425; 84590; 85025; 86850; 86900; 86901; 87635; 88307; 88342; 93005; C1776; J0131; J1100; J1170; J2250; J2405; J2765; J3010

== ENCOUNTER → 2020-07-11 10:04 | Outpatient (BNVA) | payer OTHER, SELFPAY | PROVIDERS: PCP Internal Medicine; Visit Provider Physician Assistant ==

== ENCOUNTER → 2020-07-24 11:38 | Outpatient (BNVA) | payer OTHER, SELFPAY | PROVIDERS: PCP Internal Medicine; Visit Provider Surgery ==

== ENCOUNTER → 2020-08-08 14:26 | Outpatient (BNVA) | payer OTHER, SELFPAY | PROVIDERS: PCP Internal Medicine; Visit Provider Physician Assistant ==

== ENCOUNTER → 2020-08-15 08:07 | Outpatient (BNVA) | payer OTHER, SELFPAY | PROVIDERS: PCP Internal Medicine; Visit Provider Dietitian, Registered ==

== ENCOUNTER → 2020-08-20 08:19 | Outpatient (BNVA) | payer OTHER, SELFPAY | PROVIDERS: PCP Internal Medicine; Visit Provider Dietitian, Registered ==

== ENCOUNTER → 2020-09-12 14:43 | Outpatient (BNVA) | payer OTHER, SELFPAY | PROVIDERS: PCP Internal Medicine; Visit Provider Dietitian, Registered | DX: E66.01 Morbid (severe) obesity due to excess calories (principal) | CPT/HCPCS: 97803 ==

== ENCOUNTER → 2020-09-16 16:38 | Outpatient (BNVA) | payer OTHER, SELFPAY | PROVIDERS: PCP Internal Medicine; Visit Provider Physician Assistant ==

== ENCOUNTER → 2020-09-26 10:31 | Outpatient (BNVA) | payer OTHER, SELFPAY | PROVIDERS: PCP Internal Medicine; Visit Provider Physician Assistant ==

== ENCOUNTER → 2020-10-03 15:14 | Outpatient (BNVA) | payer OTHER, SELFPAY | PROVIDERS: PCP Internal Medicine; Visit Provider Surgery ==

== ENCOUNTER → 2020-11-03 11:17 | Outpatient (BNVA) | payer OTHER, SELFPAY | PROVIDERS: PCP Internal Medicine; Visit Provider Physician Assistant ==

== ENCOUNTER → 2020-12-02 16:09 | Outpatient (BNVA) | payer OTHER, SELFPAY | PROVIDERS: PCP Internal Medicine; Visit Provider Physician Assistant ==

== ENCOUNTER → 2021-01-22 13:49 | Outpatient (BNVA) | payer OTHER, SELFPAY | PROVIDERS: PCP Internal Medicine; Visit Provider Physician Assistant ==

== ENCOUNTER → 2021-01-23 07:51 | Outpatient (BNVA) | payer OTHER, SELFPAY | PROVIDERS: PCP Internal Medicine; Visit Provider Physician Assistant ==

== ENCOUNTER → 2021-02-04 08:17 | Outpatient (BNVA) | payer OTHER, SELFPAY | PROVIDERS: PCP Internal Medicine; Visit Provider Dietitian, Registered | DX: E66.01 Morbid (severe) obesity due to excess calories (principal); E50.9 Vitamin A deficiency, unspecified; E51.9 Thiamine deficiency, unspecified; E55.9 Vitamin D deficiency, unspecified; K90.49 Malabsorption due to intolerance, not elsewhere classified; F41.8 Other specified anxiety disorders; Z68.42 Body mass index [BMI] 45.0-49.9, adult; Z90.3 Acquired absence of stomach [part of]; Z98.84 Bariatric surgery status; Z71.3 Dietary counseling and surveillance | CPT/HCPCS: 97803 ==

== ENCOUNTER → 2021-03-10 12:59 | Outpatient (BNVA) | payer OTHER, SELFPAY | PROVIDERS: PCP Internal Medicine; Visit Provider Surgery ==

== ENCOUNTER 2021-03-12 15:55 | Outpatient (REF) | payer OTHER, SELFPAY ==
[2021-03-12 16:42] LABS: MANUAL DIFF FLAG NO
[2021-03-12 16:59] LABS: Basophils Percent Auto 0.4 % (0-2); Eosinophils Absolute Auto 0.1 X10*3/uL (0.0-0.4); Eosinophils Percent Auto 0.7 % (0-4); Hematocrit 40.4 % (37-47); Hemoglobin 13.5 g/dl (12.0-16.0); Imm Gran Abs Auto 0.01 X10*3/uL (0.00-0.03); Imm Gran Pct Auto 0.1 % (0.0-0.4); Lymphocytes Absolute Auto 2.8 X10*3/uL (1.2-4.9); Lymphocytes Percent Auto 41.6 % (20-40); Mean Corpuscular HGB Conc 33.4 g/dl (31.0-35.0); Mean Corpuscular Hemoglobin 29.5 pg (27.0-33.0); Mean Corpuscular Volume 88.4 fL (80-98); Mean Platelet Volume 9.6 fL (9.4-12.3); Monocytes Absolute Auto 0.4 X10*3/uL (0.1-1.2); Monocytes Percent Auto 5.1 % (2-11); Neutrophils Absolute Auto 3.5 X10*3/uL (2.0-8.3); Neutrophils Percent Auto 52.1 % (45-73); Platelet Count 324 X10*3/uL (160-400); Red Blood Count 4.57 X10*6/uL (4.20-5.50); Red Cell Distribution Width 13.1 % (11.0-16.0); White Blood Count 6.8 X10*3/uL (4.8-10.8)
[2021-03-12 17:13] LABS: Estimated Average Glucose 100 mg/dL; Hemoglobin A1c % 5.1 %
[2021-03-12 17:51] LABS: Alanine Aminotransferase 14 U/L (0-31); Albumin Level 4.3 g/dL (3.5-5.0); Alkaline Phosphatase 66 U/L (39-117); Anion Gap 16 (12-20); Aspartate Amino Transferase 14 U/L (5-31); Bilirubin Total 1.3 mg/dL (0.0-1.0); Blood Urea Nitrogen 4 mg/dL (9-16); C Reactive Protein 0.12 mg/dL (< or = 0.50); Calcium 9.4 mg/dL (8.4-10.2); Carbon Dioxide 24 mmol/L (22-29); Chloride 103 mmol/L (96-108); Cholesterol 171 mg/dL; Estimated Glomerular Filt Rate > 60; Glucose Fasting 86 mg/dL (60-99); HDL Cholesterol 65 mg/dL; Iron 133 mcg/dL (30-160); LDL Cholesterol Calculated 92 mg/dl; Percent Iron Saturation 36 % (15-50); Potassium 3.7 mmol/L (3.3-5.1); Sodium 139 mmol/L (135-145); Total Iron Binding Capacity 373 mcg/dL (228-428); Total Protein 7.1 g/dL (6.5-8.0); Triglycerides 72 mg/dL; Unsaturated Iron Binding 240 ug/dL
[2021-03-12 18:11] LABS: TSH reflex Free T4 0.44 uIU/mL (0.32-4.0); Vitamin D 25-OH Total 28.9 ng/mL (>30)
[2021-03-12 18:25] LABS: Ferritin 67 ng/mL (10-122)
[2021-03-12 18:30] LABS: Folate > 20.0 ng/mL (> or = 4.0); Vitamin B12 402 pg/mL (200-900)
[2021-03-13 15:51] LABS: Calcium (PTHI) 9.3 mg/dL (8.6-10.2); PTHI 87 pg/mL (14-64)
[2021-03-16 16:46] LABS: Zinc 75 mcg/dL (60-130)
[2021-03-18 12:01] LABS: Vitamin B1 6 nmol/L (8-30)
[2021-03-19 00:32] LABS: Vitamin A 46 mcg/dL (38-98)
== END 2021-03-12 15:56 | disposition home or self-care (01) ==
LOC: HO.LAB 15:55
PROVIDERS: PCP Internal Medicine; Visit Provider Physician Assistant
DX: E66.01 Morbid (severe) obesity due to excess calories (principal); Z98.84 Bariatric surgery status
CPT/HCPCS: 36415; 80053; 80061; 82306; 82607; 82728; 82746; 83036; 83540; 83970; 84425; 84443; 84590; 84630; 85025; 86140